=== PATIENT | female | born 1955 | race Caucasian/White ===

== ENCOUNTER 2017-12-19 13:48 | Emergency (ER) | payer MEDICARE, MEDICAID, OTHER ==
[~2017-12-19] VITALS: Ht 157.5 cm; Wt 55.0 kg
[~2017-12-19 13:48] MED LIST: DULO60CA44 PO; LACT10SO6 MT; LORA0.5T2 MT; MULT-1146 MT
[2017-12-19] MEDS ORDERED: KETOROLAC 15MG/ML VIAL IV ONE (15:30)
[2017-12-19] MEDS ORDERED: SODIUM CHLORIDE 0.9% 1000ML BAG (SEPSIS BOLUS) IV NR (15:52)
[2017-12-19 16:35] LABS: EOSINOPHILS % 2.5 % (0.0-5.0); HEMATOCRIT. 44.6 % (36.0-48.0); HEMOGLOBIN. 14.8 g/dL (12.0-16.0); LYMPHOCYTES % 25.5 % (20.0-50.0); MEAN CORPUSCULAR HEMOGLOBIN 30.4 pg (28.0-32.0); MEAN CORPUSCULAR VOLUME 91.3 fL (81.0-99.0); MEAN PLATELET VOLUME 9.4 fl (7.4-10.4); PLATELET 209 x1000/uL (130-400); RED BLOOD CELL COUNT 4.89 mill/uL (4.2-5.4); RED CELL DISTRIBUTION WIDTH 13.9 % (11.6-14.6)
[2017-12-19 16:41] LABS: CHLORIDE 110 mEq/L (98-107)
[2017-12-19 16:42] LABS: PROTHROMBIN TIME 10.7 sec (9.4-11.6)
[2017-12-19] MEDS ORDERED: DIATR MEGLU/DIATRIZOATE SOLN 30ML PO ONE (19:30)
[2017-12-19 19:47] LABS: CLARITY URINE CLOUDY (CLEAR); COLOR URINE YELLOW (YELLOW); KETONES URINE NEGATIVE (NEGATIVE); LEUKOCYTE ESTERASE URINE 3+ (NEGATIVE); NITRITE URINE NEGATIVE (NEGATIVE); OCCULT BLOOD URINE NEGATIVE (NEGATIVE); PH URINE 5.5 (4.5-8.0); PROTEIN URINE TRACE (NEGATIVE); SPECIFIC GRAVITY URINE 1.028 (1.005-1.030)
[2017-12-19] MEDS ORDERED: DIATR MEGLU/DIATRIZOATE SOLN 30ML ONE (19:58)
[2017-12-19] MEDS ORDERED: CEFTRIAXONE 1 G PREMIX 50 ML IV ONE (20:15)
[2017-12-19 21:42] VITALS: BP 111/66
== END 2017-12-19 22:57 | disposition home or self-care (01) ==
LOC: ER 13:48 → CANBEDREQ 23:21
DX: Z43.1 Encounter for attention to gastrostomy (principal); N39.0 Urinary tract infection, site not specified; E86.0 Dehydration; R41.82 Altered mental status, unspecified; E88.09 Other disorders of plasma-protein metabolism, not elsewhere classified; M24.50 Contracture, unspecified joint; K76.9 Liver disease, unspecified; R79.89 Other specified abnormal findings of blood chemistry; R47.02 Dysphasia; F31.9 Bipolar disorder, unspecified; I10 Essential (primary) hypertension; Z68.22 Body mass index [BMI] 22.0-22.9, adult
CPT/HCPCS: 36415; 43760; 71045; 74018; 80053; 81003; 83605; 85025; 85610; 87040; 87086; 93005; 96361; 96365; 96375; 99285; J0696; J1885; J7030; Q9963

== ENCOUNTER 2017-12-20 17:20 | Emergency (ER) | payer MEDICARE, MEDICAID ==
[~2017-12-20] VITALS: Ht 167.6 cm; Wt 52.0 kg
[2017-12-20] MEDS ORDERED: SODIUM CHLORIDE 0.9% 1,000 ML IV ONE (17:52)
[2017-12-20] MEDS ORDERED: LORAZEPAM 2MG/ML CPJ IV ONE (18:15)
[2017-12-20 18:39] LABS: BASOPHILS % 0.5 % (0.0-2.0); EOSINOPHILS % 4.3 % (0.0-5.0); HEMOGLOBIN. 12.8 g/dL (12.0-16.0); LYMPHOCYTES % 29.2 % (20.0-50.0); MEAN CORPUSCULAR HEMOGLOBIN 30.5 pg (28.0-32.0); MEAN CORPUSCULAR VOLUME 90.6 fL (81.0-99.0); MEAN PLATELET VOLUME 9.1 fl (7.4-10.4); MONOCYTES % 8.7 % (2.0-8.0); NEUTROPHILS % 57.3 % (40.0-76.0); PLATELET 205 x1000/uL (130-400); RED CELL DISTRIBUTION WIDTH 13.5 % (11.6-14.6)
[2017-12-20 18:45] LABS: INR 1.1; PROTHROMBIN TIME 11.4 sec (9.4-11.6)
[2017-12-20 18:47] LABS: AMMONIA 30 uMol/L (<32)
[2017-12-20 18:51] LABS: CHLORIDE 110 mEq/L (98-107)
[2017-12-20] MEDS ORDERED: DIATR MEGLU/DIATRIZOATE SOLN 30ML ONE (19:14)
[2017-12-21 00:05] VITALS: BP 127/58
== END 2017-12-21 00:28 | disposition home or self-care (01) ==
LOC: ER 17:43
DX: Z43.1 Encounter for attention to gastrostomy (principal); F31.9 Bipolar disorder, unspecified; R41.82 Altered mental status, unspecified; R07.9 Chest pain, unspecified
CPT/HCPCS: 36415; 43760; 70450; 71045; 74018; 80053; 82140; 84484; 85025; 85610; 85730; 86850; 86900; 86901; 93005; 96374; 99285; J2060; J7030; Q9963

== ENCOUNTER 2018-04-05 00:11 | Inpatient (IN) | payer MEDICARE, MEDICAID ==
[~2018-04-05] VITALS: Ht 157.5 cm; Wt 56.7 kg
[2018-04-05] MEDS ORDERED: SODIUM CHLORIDE 0.9% 1,000 ML IV ONE (01:15)
[2018-04-05 01:50] LABS: BASOPHILS % 0.4 % (0.0-2.0); EOSINOPHILS % 0.8 % (0.0-5.0); HEMATOCRIT. 45.9 % (36.0-48.0); HEMOGLOBIN. 15.5 g/dL (12.0-16.0); LYMPHOCYTES % 17.5 % (20.0-50.0); MEAN CORPUSCULAR HEMOGLOBIN 30.2 pg (28.0-32.0); MEAN CORPUSCULAR VOLUME 89.4 fL (81.0-99.0); MEAN PLATELET VOLUME 7.8 fl (7.4-10.4); MONOCYTES % 8.5 % (2.0-8.0); NEUTROPHILS % 72.8 % (40.0-76.0); PLATELET 401 x1000/uL (130-400); RED BLOOD CELL COUNT 5.14 mill/uL (4.2-5.4); RED CELL DISTRIBUTION WIDTH 13.7 % (11.6-14.6)
[2018-04-05 01:52] LABS: PROTHROMBIN TIME 10.4 sec (9.1-11.1)
[2018-04-05 02:04] LABS: CHLORIDE 106 mEq/L (98-107)
[2018-04-05] MEDS ORDERED: SODIUM CHLORIDE 0.9% 1,000 ML IV SCH (03:09)
[2018-04-05 08:00] VITALS: BP 125/73
[2018-04-05] MEDS ORDERED: ONDANSETRON HCL 4MG/2ML INJ IV PRN (11:30)
[2018-04-05 12:00] VITALS: BP 136/78
[2018-04-05] MEDS: DEXT 5%/0.45% NACL KCL 20MEQ/L 1,000 ML IV SCH (13:35)
[2018-04-05 16:00] VITALS: BP 134/80
[2018-04-05 20:00] VITALS: BP 129/74
[2018-04-05] MEDS: LORAZEPAM 2MG/ML CPJ IV PRN (23:40)
[2018-04-06] VITALS: BP 119/88
[2018-04-06 04:00] VITALS: BP 130/81
[2018-04-06 08:00] VITALS: BP 145/78
[2018-04-06] MEDS: DEXT 5%/0.45% NACL KCL 20MEQ/L 1,000 ML IV SCH (09:21)
[2018-04-06] MEDS ORDERED: FENTANYL CITRATE/PF 50MCG/ML 2ML VIAL IV PRN (09:45)
[2018-04-06] MEDS ORDERED: ONDANSETRON HCL 4MG/2ML INJ IV PRN (09:45)
[2018-04-06] MEDS ORDERED: PROPOFOL 200MG/20ML VIAL IV ONE (11:01)
[2018-04-06] MEDS ORDERED: CEFAZOLIN SODIUM 1000MG/VIAL ONE (11:13)
[2018-04-06 12:00] VITALS: BP 120/67
[2018-04-06 16:00] VITALS: BP 126/69
[2018-04-06 20:00] VITALS: BP_SYST 109; BP_DIAS 102; BP_DIAS 72
[2018-04-07] VITALS: BP 122/76
[2018-04-07] MEDS: LORAZEPAM 2MG/ML CPJ IV PRN (00:50)
[2018-04-07 04:00] VITALS: BP 117/80
[2018-04-07] MEDS: DEXT 5%/0.45% NACL KCL 20MEQ/L 1,000 ML IV SCH (04:22)
[2018-04-07 08:00] VITALS: BP 103/61
[2018-04-07 12:00] VITALS: BP 116/74
[2018-04-07 16:39] VITALS: BP 139/84
== END 2018-04-07 16:55 | DRG 394 ==
LOC: ER 00:11 → 6EST 03:10 → EDBEDREQTM 03:12 → EDBEDREQ 03:12 → EDBEDREQSVC 03:12 → ENRESERV 04:53
PROVIDERS: ADMIT Internal Medicine; ATTEND Internal Medicine
PROC: 0DH63UZ Insertion of Feeding Device into Stomach, Percutaneous Approach (ICD-10-PCS; principal; 2018-04-06 11:30)
DX: K94.23 Gastrostomy malfunction (principal); E44.1 Mild protein-calorie malnutrition; F31.9 Bipolar disorder, unspecified; F20.9 Schizophrenia, unspecified; R13.10 Dysphagia, unspecified; Z74.01 Bed confinement status; R27.9 Unspecified lack of coordination; F41.9 Anxiety disorder, unspecified; F03.90 Unspecified dementia, unspecified severity, without behavioral disturbance, psychotic disturbance, mood disturbance, and anxiety; H91.93 Unspecified hearing loss, bilateral; I10 Essential (primary) hypertension; K74.60 Unspecified cirrhosis of liver; Z86.73 Personal history of transient ischemic attack (TIA), and cerebral infarction without residual deficits; Z79.899 Other long term (current) drug therapy; Z68.22 Body mass index [BMI] 22.0-22.9, adult
CPT/HCPCS: 36415; 93970; 96360; 99285; C1893; J0690; J2060; J2704; J7030; A4315

== ENCOUNTER 2018-08-25 15:27 | Inpatient (IN) | payer MEDICARE, MEDICAID ==
[~2018-08-25] VITALS: Ht 154.9 cm; Wt 56.7 kg
[2018-08-25 17:15] VITALS: BP 115/75
[2018-08-25] MEDS ORDERED: LORA2TAB95 MT (19:37)
[2018-08-25 20:00] VITALS: BP 138/70
[2018-08-25] MEDS ORDERED: ONDANSETRON HCL 4MG/2ML INJ IV PRN (21:45)
[2018-08-25 22:56] LABS: BASOPHILS % 0.7 % (0.0-2.0); EOSINOPHILS % 2.1 % (0.0-5.0); LYMPHOCYTES % 26.7 % (20.0-50.0); MEAN CORPUSCULAR HEMOGLOBIN 29.4 pg (28.0-32.0); MEAN PLATELET VOLUME 7.8 fl (7.4-10.4); MONOCYTES % 7.4 % (2.0-8.0); NEUTROPHILS % 63.1 % (40.0-76.0); PLATELET 210 x1000/uL (130-400); RED BLOOD CELL COUNT 5.12 mill/uL (4.2-5.4); RED CELL DISTRIBUTION WIDTH 13.6 % (11.6-14.6)
[2018-08-25 23:02] LABS: CHLORIDE 104 mEq/L (98-107)
[2018-08-25 23:04] LABS: INR 1.1; PARTIAL THROMBOPLASTIN TIME 27.8 sec (23.4-31.0); PROTHROMBIN TIME 10.7 sec (9.1-11.1)
[2018-08-25 23:08] LABS: PHOSPHORUS 3.6 mg/dL (2.5-4.9)
[2018-08-25 23:09] LABS: LDL CHOLESTEROL 139 mg/dL (5-100)
[2018-08-25 23:10] LABS: HDL CHOLESTEROL 57 mg/dL (40-59)
[2018-08-25 23:11] LABS: TOTAL IRON BINDING CAPACITY 250 ug/dL (250-450)
[2018-08-25 23:13] LABS: T4 FREE 1.17 ng/dL (0.76-1.46)
[2018-08-26] VITALS: BP 125/70
[2018-08-26] MEDS ORDERED: DEXT 5%/0.45% NACL KCL 20MEQ/L 1,000 ML IV SCH (01:00)
[2018-08-26] MEDS: DEXT 5%/0.45% NACL KCL 20MEQ/L 1,000 ML IV SCH ×2 (01:49→16:04)
[2018-08-26 02:00] LABS: CLARITY URINE TURBID (CLEAR); COLOR URINE DARK YELLOW (YELLOW); KETONES URINE 1+ (NEGATIVE); LEUKOCYTE ESTERASE URINE NEGATIVE (NEGATIVE); NITRITE URINE NEGATIVE (NEGATIVE); OCCULT BLOOD URINE NEGATIVE (NEGATIVE); PROTEIN URINE NEGATIVE (NEGATIVE); SPECIFIC GRAVITY URINE 1.019 (1.005-1.030)
[2018-08-26 04:00] VITALS: BP 135/60
[2018-08-26 08:00] VITALS: BP 123/69
[2018-08-26] MEDS ORDERED: ZINC SULF/CUSO4 P-HYD/MANG/CR 10 ML VIAL IV SCH (09:00)
[2018-08-26] MEDS ORDERED: PANTOPRAZOLE SODIUM 40 MG/VIAL IV SCH (09:00)
[2018-08-26 11:52] VITALS: BP 130/70
[2018-08-26] MEDS ORDERED: POTASSIUM CHLORIDE 20MEQ TABLET SR PO SCH (12:15)
[2018-08-26] MEDS: DIATR MEGLU/DIATRIZOATE SOLN 30ML PO SCH ×2 (12:56→13:20)
[2018-08-26 12:57] LABS: HEMATOCRIT 44.5 % (36.0-48.0); HEMOGLOBIN 14.9 g/dL (12.0-16.0)
[2018-08-26] MEDS: MVI, ADULT NO.1 10 ML in DEXT 5%/0.45% NACL 1000ML 1,000 ML IV SCH ×2 (14:31)
[2018-08-26] MEDS ORDERED: IOHEXOL-300 100 ML BOTTLE ONE (17:19)
[2018-08-26 20:00] VITALS: BP 143/84
[2018-08-26] MEDS: PANTOPRAZOLE SODIUM 40 MG/VIAL IV SCH (23:58)
[2018-08-27] VITALS: BP 135/76
[2018-08-27 04:00] VITALS: BP 115/62
[2018-08-27] MEDS: DEXT 5%/0.45% NACL KCL 20MEQ/L 1,000 ML IV SCH (05:39)
[2018-08-27] MEDS: LORAZEPAM 2MG/ML CPJ IV PRN (06:47)
[2018-08-27 08:00] VITALS: BP 106/51
[2018-08-27 09:04] LABS: HEMOGLOBIN 15.4 g/dL (12.0-16.0)
[2018-08-27] MEDS: PANTOPRAZOLE SODIUM 40 MG/VIAL IV SCH ×2 (10:51→20:53)
[2018-08-27 12:00] VITALS: BP 136/76
[2018-08-27 16:00] VITALS: BP 101/68
[2018-08-27] MEDS: MVI, ADULT NO.1 10 ML in DEXT 5%/0.45% NACL 1000ML 1,000 ML IV SCH ×2 (17:41)
[2018-08-27 20:00] VITALS: BP 117/65
[2018-08-28] VITALS: BP 111/77
[2018-08-28 04:00] VITALS: BP 106/58
[2018-08-28] MEDS: DEXT 5%/0.45% NACL KCL 20MEQ/L 1,000 ML IV SCH (06:27)
[2018-08-28] MEDS: LORAZEPAM 2MG/ML CPJ IV PRN (06:27)
[2018-08-28 08:00] VITALS: BP 101/66
[2018-08-28] MEDS: PANTOPRAZOLE SODIUM 40 MG/VIAL IV SCH (09:25)
[2018-08-28 11:56] VITALS: BP 101/66
[2018-08-28 12:00] VITALS: BP 101/58
== END 2018-08-28 13:45 | DRG 378 ==
LOC: 6EST 15:27
PROVIDERS: ADMIT Specialist; ATTEND Internal Medicine
DX: K92.2 Gastrointestinal hemorrhage, unspecified (principal); R64 Cachexia; R26.9 Unspecified abnormalities of gait and mobility; R53.1 Weakness; K59.00 Constipation, unspecified; F03.90 Unspecified dementia, unspecified severity, without behavioral disturbance, psychotic disturbance, mood disturbance, and anxiety; F31.9 Bipolar disorder, unspecified; E07.9 Disorder of thyroid, unspecified; R62.7 Adult failure to thrive; K74.60 Unspecified cirrhosis of liver; F41.9 Anxiety disorder, unspecified; Z68.23 Body mass index [BMI] 23.0-23.9, adult; Z93.1 Gastrostomy status
CPT/HCPCS: 36415; 71045; 74177; 80048; 80061; 80076; 82270; 82784; 83540; 83550; 83735; 84100; 84439; 84443; 84481; 84550; 85014; 85018; 86677; 87493; C1893; C9113; J2060; J3490; Q9963; Q9967; A4315